=== PATIENT | female | born 1945 | race Caucasian/White ===

== ENCOUNTER 2017-11-28 14:29 | Outpatient (CLI) | payer MEDICARE, BC, OTHER | END 2017-11-28 14:30 | disposition home or self-care (01) | LOC: BICMAMMO 14:29 | PROVIDERS: ATTEND Internal Medicine | DX: Z12.31 Encounter for screening mammogram for malignant neoplasm of breast (principal); Z80.3 Family history of malignant neoplasm of breast | CPT/HCPCS: 77063; 77067 ==

== ENCOUNTER 2018-05-17 17:28 | Emergency (ER) | payer MEDICARE, BC, OTHER ==
[2018-05-17 18:02] LABS: Hemoglobin 13.5 g/dL (12.0-16.0); Mean Corpuscular HGB CONC 32.4 g/dL (32.0-36.0); Mean Corpuscular Hemoglobin 29.4 pg (27.0-31.0); Mean Corpuscular Volume 90.6 fL (78.0-98.0); Mean Platelet Volume 7.7 fL (7.4-10.4); Platelet Count 211 thou/uL (130-400); RBC Distribution Width 12.3 % (11.5-14.5); White Blood Cell (WBC) Count 9.9 thou/uL (4.8-10.8)
[2018-05-17 18:15] LABS: Band 9 % (5-11); Lymphocytes 9 % (21-51); MDiff Complete? YES; Monocytes 6 % (0-10); Neutrophil 72 % (42-75); PLT Morphology Comment Appears Adequate; RBC Morphology Normal; Reactive Lymphocytes 3 % (0-10)
[2018-05-17 18:21] LABS: ALT (SGPT) 11 U/L (8-55); AST (SGOT) 16 U/L (5-34); Albumin 4.1 g/dL (3.4-4.8); Alkaline Phosphatase 76 U/L (40-150); Anion Gap 15 mmol/L (10-20); BUN (Urea Nitrogen) 9 mg/dL (9.8-20.1); Bilirubin, Total 0.6 mg/dL (0.2-1.2); Calc. Creatinine Clearance 0 mL/min (70-130); Calcium 8.8 mg/dL (7.8-10.44); Carbon Dioxide 22 mmol/L (23-31); Chloride 106 mmol/L (98-107); Estimated GFR-MDRD 54; Globulin 2.5 g/dL (2.4-3.5); Glucose 116 mg/dL (83-110); Potassium 3.6 mmol/L (3.5-5.1); Protein, Total 6.6 g/dL (6.0-8.3); Sodium 139 mmol/L (136-145)
--- NOTE | 2018-05-17 18:23 | RAD ---
TWO VIEWS CHEST: 05/17/18 HISTORY: Cough. PA and lateral views of the chest is obtained. The lungs are well aerated. No evidence of active intrathoracic disease seen. No evidence of effusion s, pneumonia or pneumothorax seen. IMPRESSION: Unremarkable two views chest. POS: [facility]
[2018-05-17 19:30] LABS: Bilirubin Negative (Negative); Blood, Urine Negative (Negative); Clarity CLEAR (Clear); Glucose, Urine (Dipstick) Negative (Negative); Leukocyte Trace (Negative); Nitrite Negative (Negative); Protein, Urine (Dipstick) Negative (Neg-Trace); Urobilinogen 0.2 mg/dL (0.2-1.0)
[2018-05-17 19:32] LABS: Bacteria/HPF None Seen HPF (None Seen); Hyaline Casts/LPF 0-3 HYALINE CAST LPF (0-3 Hyaline); Pathc Cast-AUWi Flag 0.29 (0-2.49); Squamous Epithelial 0-3 HPF (0-3)
== END 2018-05-17 20:39 | disposition home or self-care (01) ==
LOC: ERS 17:28
DX: B34.9 Viral infection, unspecified (principal); M79.10 Myalgia, unspecified site; K21.9 Gastro-esophageal reflux disease without esophagitis; E78.5 Hyperlipidemia, unspecified; Z79.899 Other long term (current) drug therapy
CPT/HCPCS: 36415; 71046; 80053; 81003; 81015; 83605; 85025; 87086; 87804; 96360

== ENCOUNTER 2018-05-28 07:31 | Outpatient (CLI) | payer MEDICARE, BC, OTHER ==
--- NOTE | 2018-05-28 09:10 | MRI ---
BRAIN MRI WITH AND WITHOUT CONTRAST: Date: 05-28-18 Comparison: None. History: Headaches and head pressure. Technique: Multiplanar, multisequence MR imaging of the brain is obtained with and without contrast. FINDINGS: The diffusion weighted imaging demonstrates no evidence for acute infarction. The axial gradient echo imaging demonstrates no evidence for intracranial hemorrhage. The paranasal sinuses and mastoid air cells appear grossly unremarkable. The arterial flow voids at the axial level of the skull base appear grossly unremarkable on the T2 we ighted imaging. There is no midline shift or mass effect. No ventricular enlargement is seen. Orbits and globes demonstrate no acute findings on either side. Post contrast imaging demonstrates no abnormal enhancement within the brain parenchyma. IMPRESSION: Unremarkable contrast enhanced brain MRI. POS: [facility]
[2018-05-28] MEDS ORDERED: Gadobenate Dimeglumine 529 MG/1 ML (20ML VIAL) ONE (13:38)
== END 2018-05-28 07:32 | disposition home or self-care (01) ==
LOC: BICMRI 07:31
PROVIDERS: ATTEND Internal Medicine
DX: R51 Headache (principal); J32.9 Chronic sinusitis, unspecified
CPT/HCPCS: 70553; A9579

== ENCOUNTER 2018-12-04 09:10 | Outpatient (CLI) | payer MEDICARE, BC, OTHER ==
--- NOTE | 2018-12-04 09:46 | MMO ---
Bilateral MAMMO Bilat Screen [facility]. CLINICAL HISTORY: Patient is 73 years old and is seen for screening. The patient has the following family history of breast cancer: mother, at age 80. The patient has no personal history of cancer. VIEWS: The views performed were: bilateral craniocaudal with tomosynthesis and bilateral mediolateral oblique with tomosynthesis. FILMS COMPARED: The present examination has been compared to prior imaging studies performed at [facility] on 05/13/2014, 05/26/2015, 10/22/2016 and 11/28/2017. MAMMOGRAM FINDINGS: There are scattered fibroglandular densities. There are no suspicious masses, suspicious calcifications, or new areas of architectural distortion. IMPRESSION: THERE IS NO MAMMOGRAPHIC EVIDENCE OF MALIGNANCY. A ROUTINE FOLLOW-UP MAMMOGRAM IN 1 YEAR IS RECOMMENDED. THE RESULTS OF THIS EXAM WERE SENT TO THE PATIENT. ACR BI-RADS Category 1 - Negative MAMMOGRAPHY NOTE: 1. A negative mammogram report should not delay a biopsy if a dominant of clinically suspicious mass is present. 2. Approximately 10% to 15% of breast cancers are not detected by mammography. 3. Adenosis and dense breasts may obscure an underlying neoplasm.
== END 2018-12-04 09:11 | disposition home or self-care (01) ==
LOC: BICMAMMO 09:10
PROVIDERS: ATTEND Internal Medicine
DX: Z12.31 Encounter for screening mammogram for malignant neoplasm of breast (principal); Z80.3 Family history of malignant neoplasm of breast
CPT/HCPCS: 77063; 77067

== ENCOUNTER 2021-09-07 10:57 | Outpatient (CLI) | payer MEDICARE, BC, OTHER | END 2021-09-07 10:58 | disposition home or self-care (01) | LOC: BICMAMMO 10:57 | PROVIDERS: ATTEND Internal Medicine | DX: Z12.31 Encounter for screening mammogram for malignant neoplasm of breast (principal); Z80.3 Family history of malignant neoplasm of breast | CPT/HCPCS: 77063; 77067 ==

== ENCOUNTER 2025-02-22 08:58 | Outpatient (CLI) | payer MEDICARE, BC | END 2025-02-22 08:59 | disposition home or self-care (01) | LOC: BICMAMMO 08:58 | PROVIDERS: ATTEND Internal Medicine | DX: Z12.31 Encounter for screening mammogram for malignant neoplasm of breast (principal); Z80.3 Family history of malignant neoplasm of breast | CPT/HCPCS: 77063; 77067 ==